=== PATIENT | male | born 1955 | race Caucasian/White ===

== ENCOUNTER 2019-04-21 15:29 | Inpatient (IN) ==
[2019-04-21] MEDS ORDERED: LABETALOL 20 MG/4 ML SYRINGE IV STA (16:49)
[2019-04-21] MEDS ORDERED: LABETALOL 20 MG/4 ML SYRINGE IV ONE (16:49)
[2019-04-21 16:51] LABS: Basophils # 0.1 10*3/uL (0.0-0.2); Basophils % 0.5 % (0.0-0.8); Eosinophils % 0.1 % (0.00-10.9); Hematocrit 52.5 VOL% (42.0-52.0); Hemoglobin 18.1 GM/DL (14.0-18.0); Immature Granulocytes % 0.4 %; Immature Granulocytes Absolute 0.05 #; Lymphocytes # 1.1 10*3/uL (1.4-4.0); Lymphocytes % 8.2 % (21.2-54.2); Mean Corpuscular HGB Conc 34.5 GM/DL (32-36); Mean Corpuscular Volume 95.5 FL (87-102); Mean Platelet Volume 9.5 FL (9.6-12.0); Monocytes % 6.5 % (1.7-12.7); Neutrophils % 84.3 % (38.7-73.9); Platelet Count 201 T/CUMM (130-400); Red Cell Distribution Width 11.9 % (9.3-17.3); White Blood Count 13.5 T/CUMM (4-12)
[2019-04-21 17:03] LABS: PT Patient Result 10.9 SECS (9.6-12.2); Partial Thromboplastin Time 28.3 SECS (20.8-36.0)
[2019-04-21 17:14] LABS: Alanine Aminotransferase 28 U/L (16-61); Albumin 3.4 G/DL (3.4-5.0); Alkaline Phosphatase 82 U/L (45-117); Aspartate Amino Transferase 22 U/L (0-37); Blood Urea Nitrogen 12 MG/DL (7-18); Calcium 9.4 MG/DL (8.5-10.1); Estimated Glom Filtration Rate 86 ML/MIN; Glucose 166 MG/DL (74-106); Total Protein 7.9 G/DL (6.4-8.3)
[2019-04-21] MEDS ORDERED: ACETAMINOPHEN 325 MG TABLET PO PRN (18:22)
[2019-04-21] MEDS ORDERED: ONDANSETRON 4 MG/2 ML VIAL IV PRN (18:22)
[2019-04-21] MEDS ORDERED: LABETALOL 20 MG/4 ML SYRINGE IV PRN (18:27)
[2019-04-21] MEDS ORDERED: ENOXAPARIN 40 MG/0.4 ML SYRINGE SUBCUT SCH (18:30)
[2019-04-21] MEDS ORDERED: hydrALAZINE 20 MG/1 ML VIAL ONE (18:49)
[2019-04-21] MEDS ORDERED: DEXTROSE 50% 25 GM/50 ML VIAL IV PRN (18:51)
[2019-04-21] MEDS ORDERED: GLUCAGON 1 MG VIAL IM PRN (18:51)
[2019-04-21] MEDS: LISINOPRIL 10 MG TABLET PO SCH (18:55)
[2019-04-21] MEDS ORDERED: ENOXAPARIN 30 MG/0.3 ML SYRINGE SUBCUT SCH (19:00)
[2019-04-21 19:35] LABS: Risk Ratio 5.3; VLDL CHOLESTEROL 36.6 MG/DL
[2019-04-21] MEDS ORDERED: ASPIRIN EC 81 MG TABLET PO SCH (21:00)
[2019-04-21] MEDS: INSULIN REGULAR 100 UNIT/ML SUBCUT SCH (21:24)
[2019-04-21] MEDS: WARFARIN 10 MG TABLET PO SCH (23:06)
[2019-04-21] MEDS: ROSUVASTATIN 20 MG TABLET PO SCH (23:06)
[2019-04-21] MEDS: DOXEPIN 25 MG CAPSULE PO SCH (23:07)
[2019-04-21] MEDS: metFORMIN 500 MG TABLET PO SCH (23:07)
[2019-04-21] MEDS: ENOXAPARIN 120 MG/0.8 ML SYRINGE SUBCUT SCH (23:08)
[2019-04-21] MEDS: SODIUM CHLORIDE 0.9% 1,000 ML IV SCH (23:08)
[2019-04-22 05:05] LABS: Basophils # 0.1 10*3/uL (0.0-0.2); Basophils % 0.7 % (0.0-0.8); Eosinophils # 0.1 10*3/uL (0.0-0.87); Eosinophils % 0.6 % (0.00-10.9); Hematocrit 44.4 VOL% (42.0-52.0); Hemoglobin 15.5 GM/DL (14.0-18.0); Immature Granulocytes % 0.1 %; Immature Granulocytes Absolute 0.01 #; Lymphocytes # 1.3 10*3/uL (1.4-4.0); Lymphocytes % 14.8 % (21.2-54.2); Mean Corpuscular HGB Conc 34.9 GM/DL (32-36); Mean Corpuscular Volume 95.9 FL (87-102); Mean Platelet Volume 9.7 FL (9.6-12.0); Monocytes % 7.2 % (1.7-12.7); Neutrophils % 76.6 % (38.7-73.9); Platelet Count 182 T/CUMM (130-400); Red Blood Count 4.63 MC/CUMM (3.8-5.5); Red Cell Distribution Width 12.2 % (9.3-17.3); White Blood Count 8.4 T/CUMM (4-12)
[2019-04-22 05:12] LABS: INR 1.1; PT Patient Result 11.9 SECS (9.6-12.2)
[2019-04-22 05:31] LABS: Calcium 8.7 MG/DL (8.5-10.1); Osmolality,Calculated 280.7 MOS/KG (273-304)
[2019-04-22] MEDS ORDERED: ASPIRIN EC 81 MG TABLET PO SCH (09:00)
[2019-04-22] MEDS: INSULIN REGULAR 100 UNIT/ML SUBCUT SCH ×4 (09:55→23:05)
[2019-04-22] MEDS: NICOTINE 14 MG/24 HR PATCH TRANSDERM SCH (11:00)
[2019-04-22] MEDS: LISINOPRIL 10 MG TABLET PO SCH ×2 (11:00→21:33)
[2019-04-22] MEDS: metFORMIN 500 MG TABLET PO SCH ×2 (11:00→21:32)
[2019-04-22] MEDS: ENOXAPARIN 120 MG/0.8 ML SYRINGE SUBCUT SCH ×2 (11:09→21:34)
[2019-04-22] MEDS: SODIUM CHLORIDE 0.9% 1,000 ML IV SCH ×2 (11:32→17:32)
[2019-04-22] MEDS: WARFARIN 10 MG TABLET PO SCH (18:18)
[2019-04-22] MEDS: DOXEPIN 25 MG CAPSULE PO SCH (21:32)
[2019-04-22] MEDS: ROSUVASTATIN 20 MG TABLET PO SCH (23:05)
[2019-04-23 05:00] LABS: INR 1.6; PT Patient Result 17.1 SECS (9.6-12.2)
[2019-04-23] MEDS: ENOXAPARIN 120 MG/0.8 ML SYRINGE SUBCUT SCH (08:53)
[2019-04-23] MEDS: CLOPIDOGREL 75 MG TABLET PO SCH (08:53)
[2019-04-23] MEDS: LISINOPRIL 10 MG TABLET PO SCH ×2 (08:53→22:21)
[2019-04-23] MEDS: INSULIN REGULAR 100 UNIT/ML SUBCUT SCH ×3 (08:53→18:53)
[2019-04-23] MEDS: metFORMIN 500 MG TABLET PO SCH ×2 (08:53→22:21)
[2019-04-23] MEDS: NICOTINE 14 MG/24 HR PATCH TRANSDERM SCH (09:18)
[2019-04-23] MEDS: hydrALAZINE 20 MG/1 ML VIAL IV PRN (12:27)
[2019-04-23] MEDS: hydrALAZINE 25 MG TABLET PO SCH ×2 (16:08→22:21)
[2019-04-23] MEDS: DOXEPIN 25 MG CAPSULE PO SCH (22:21)
[2019-04-23] MEDS: ROSUVASTATIN 20 MG TABLET PO SCH (22:21)
[2019-04-23] MEDS: APIXABAN 5 MG TABLET PO SCH (22:21)
[2019-04-24] MEDS: INSULIN REGULAR 100 UNIT/ML SUBCUT SCH ×5 (02:58→22:12)
[2019-04-24 04:17] LABS: Apearance,Urine CLEAR (Clear); Bilirubin,Urine Negative (Negative); Blood, Urine Small mg/dL (Negative); Glucose,Urine (UA) 150 mg/dL (Negative); Hyaline Casts,Urine 5 /LPF (0-3); Ketones,Urine 5 mg/dL (Negative); Mucus,Urine Occasional /LPF (Occasional); Nitrite,Urine Negative (Negative); Protein,Urine >=500 MG/DL; RBC,Urine 1 /HPF (0-4); Urine Color Yellow (Yellow); Urine Specific Gravity 1.023 (1.001-1.035); WBC,Urine <1 /HPF (0-6)
[2019-04-24 06:59] LABS: Basophils # 0.1 10*3/uL (0.0-0.2); Basophils % 0.5 % (0.0-0.8); Eosinophils # 0.1 10*3/uL (0.0-0.87); Eosinophils % 0.8 % (0.00-10.9); Hematocrit 47.4 VOL% (42.0-52.0); Hemoglobin 16.3 GM/DL (14.0-18.0); Immature Granulocytes % 0.3 %; Immature Granulocytes Absolute 0.03 #; Lymphocytes % 10.1 % (21.2-54.2); Mean Corpuscular HGB Conc 34.4 GM/DL (32-36); Mean Corpuscular Volume 96.7 FL (87-102); Mean Platelet Volume 9.8 FL (9.6-12.0); Monocytes % 8.8 % (1.7-12.7); Neutrophils % 79.5 % (38.7-73.9); Platelet Count 166 T/CUMM (130-400); White Blood Count 9.6 T/CUMM (4-12)
[2019-04-24 07:22] LABS: Calcium 9.1 MG/DL (8.5-10.1); Osmolality,Calculated 291.1 MOS/KG (273-304)
[2019-04-24 07:24] LABS: Barbiturates Screen,Urine Negative (Negative); Benzodiazepines Screen,Urine Negative (Negative); Cannabinoid Screen,Urine Negative (Negative); Opiate Screen,Urine Negative (Negative); Phencyclidine Screen,Urine Negative (Negative)
[2019-04-24] MEDS: LISINOPRIL 10 MG TABLET PO SCH ×2 (09:54→22:05)
[2019-04-24] MEDS: metFORMIN 500 MG TABLET PO SCH ×2 (09:54→22:05)
[2019-04-24] MEDS: APIXABAN 5 MG TABLET PO SCH ×2 (09:54→22:05)
[2019-04-24] MEDS: NICOTINE 14 MG/24 HR PATCH TRANSDERM SCH (09:54)
[2019-04-24] MEDS: CLOPIDOGREL 75 MG TABLET PO SCH (09:54)
[2019-04-24] MEDS: hydrALAZINE 25 MG TABLET PO SCH ×4 (09:55→22:50)
[2019-04-24] MEDS: SODIUM CHLORIDE 0.45% 1,000 ML IV SCH (10:08)
[2019-04-24] MEDS: hydroCHLOROthiazide 12.5 MG CAPSULE PO SCH (15:38)
[2019-04-24] MEDS: ROSUVASTATIN 20 MG TABLET PO SCH (22:04)
[2019-04-24] MEDS: DOXEPIN 25 MG CAPSULE PO SCH (22:05)
[2019-04-25 06:30] LABS: Hematocrit 45.4 VOL% (42.0-52.0); Hemoglobin 15.7 GM/DL (14.0-18.0); Mean Corpuscular Volume 97.4 FL (87-102); Red Blood Count 4.66 MC/CUMM (3.8-5.5); White Blood Count 8.5 T/CUMM (4-12)
[2019-04-25 06:31] LABS: Basophils # 0.1 10*3/uL (0.0-0.2); Basophils % 0.7 % (0.0-0.8); Eosinophils # 0.1 10*3/uL (0.0-0.87); Eosinophils % 1.5 % (0.00-10.9); Immature Granulocytes % 0.4 %; Immature Granulocytes Absolute 0.03 #; Lymphocytes # 1.2 10*3/uL (1.4-4.0); Lymphocytes % 14.2 % (21.2-54.2); Mean Corpuscular HGB Conc 34.6 GM/DL (32-36); Mean Platelet Volume 9.9 FL (9.6-12.0); Monocytes % 10.1 % (1.7-12.7); Neutrophils % 73.1 % (38.7-73.9); Platelet Count 169 T/CUMM (130-400); Red Cell Distribution Width 12.1 % (9.3-17.3)
[2019-04-25 06:52] LABS: Calcium 8.9 MG/DL (8.5-10.1); Osmolality,Calculated 292.3 MOS/KG (273-304)
[2019-04-25] MEDS: SODIUM CHLORIDE 0.45% 1,000 ML IV SCH (09:04)
[2019-04-25] MEDS: INSULIN REGULAR 100 UNIT/ML SUBCUT SCH ×3 (09:05→18:12)
[2019-04-25] MEDS: CLOPIDOGREL 75 MG TABLET PO SCH (09:05)
[2019-04-25] MEDS: metFORMIN 500 MG TABLET PO SCH ×2 (09:05→23:50)
[2019-04-25] MEDS: APIXABAN 5 MG TABLET PO SCH ×2 (09:06→23:50)
[2019-04-25] MEDS: hydroCHLOROthiazide 12.5 MG CAPSULE PO SCH (09:06)
[2019-04-25] MEDS: amLODIPine 10 MG TABLET PO SCH (09:06)
[2019-04-25] MEDS: NICOTINE 14 MG/24 HR PATCH TRANSDERM SCH (09:06)
[2019-04-25] MEDS: hydrALAZINE 25 MG TABLET PO SCH ×4 (09:06→23:50)
[2019-04-25] MEDS: PANTOPRAZOLE 40 MG VIAL IV SCH (18:12)
[2019-04-25] MEDS: ROSUVASTATIN 20 MG TABLET PO SCH (23:49)
[2019-04-25] MEDS: DOXEPIN 25 MG CAPSULE PO SCH (23:49)
[2019-04-26] MEDS: INSULIN REGULAR 100 UNIT/ML SUBCUT SCH ×5 (00:04→22:47)
[2019-04-26 06:14] LABS: Calcium 8.7 MG/DL (8.5-10.1); Osmolality,Calculated 285.7 MOS/KG (273-304)
[2019-04-26] MEDS: SODIUM CHLORIDE 0.45% 1,000 ML IV SCH ×5 (07:30→22:00)
[2019-04-26] MEDS: hydroCHLOROthiazide 12.5 MG CAPSULE PO SCH (09:03)
[2019-04-26] MEDS: APIXABAN 5 MG TABLET PO SCH ×2 (09:03→21:43)
[2019-04-26] MEDS: metFORMIN 500 MG TABLET PO SCH ×2 (09:03→21:42)
[2019-04-26] MEDS: CLOPIDOGREL 75 MG TABLET PO SCH (09:04)
[2019-04-26] MEDS: hydrALAZINE 25 MG TABLET PO SCH ×4 (09:04→21:43)
[2019-04-26] MEDS: amLODIPine 10 MG TABLET PO SCH (09:05)
[2019-04-26] MEDS: PANTOPRAZOLE 40 MG VIAL IV SCH (09:05)
[2019-04-26] MEDS: NICOTINE 14 MG/24 HR PATCH TRANSDERM SCH (09:05)
[2019-04-26] MEDS: hydrALAZINE 20 MG/1 ML VIAL IV PRN (19:27)
[2019-04-26] MEDS: ROSUVASTATIN 20 MG TABLET PO SCH (21:42)
[2019-04-26] MEDS: DOXEPIN 25 MG CAPSULE PO SCH (21:43)
[2019-04-27] MEDS: SODIUM CHLORIDE 0.45% 1,000 ML IV SCH ×2 (03:30→12:55)
[2019-04-27 05:41] LABS: Basophils # 0.1 10*3/uL (0.0-0.2); Basophils % 0.6 % (0.0-0.8); Eosinophils # 0.1 10*3/uL (0.0-0.87); Hematocrit 46.4 VOL% (42.0-52.0); Hemoglobin 16.1 GM/DL (14.0-18.0); Immature Granulocytes % 0.2 %; Immature Granulocytes Absolute 0.02 #; Lymphocytes # 1.1 10*3/uL (1.4-4.0); Lymphocytes % 12.2 % (21.2-54.2); Mean Corpuscular HGB Conc 34.7 GM/DL (32-36); Mean Corpuscular Volume 95.5 FL (87-102); Monocytes % 10.4 % (1.7-12.7); Neutrophils % 75.6 % (38.7-73.9); Platelet Count 187 T/CUMM (130-400); Red Blood Count 4.86 MC/CUMM (3.8-5.5); Red Cell Distribution Width 11.5 % (9.3-17.3); White Blood Count 8.6 T/CUMM (4-12)
[2019-04-27 06:00] LABS: Calcium 9.1 MG/DL (8.5-10.1)
[2019-04-27] MEDS: hydroCHLOROthiazide 12.5 MG CAPSULE PO SCH (08:45)
[2019-04-27] MEDS: PANTOPRAZOLE 40 MG VIAL IV SCH (08:46)
[2019-04-27] MEDS: hydrALAZINE 25 MG TABLET PO SCH ×4 (08:46→21:18)
[2019-04-27] MEDS: CLOPIDOGREL 75 MG TABLET PO SCH (08:46)
[2019-04-27] MEDS: metFORMIN 500 MG TABLET PO SCH (08:46)
[2019-04-27] MEDS: amLODIPine 10 MG TABLET PO SCH (08:46)
[2019-04-27] MEDS: APIXABAN 5 MG TABLET PO SCH (08:46)
[2019-04-27] MEDS: INSULIN REGULAR 100 UNIT/ML SUBCUT SCH ×4 (10:20→21:31)
[2019-04-27] MEDS: NICOTINE 14 MG/24 HR PATCH TRANSDERM SCH (10:21)
[2019-04-27] MEDS: HEPARIN DRIP 25,000 UNITS/500 ML PREMIX IV SCH (21:18)
[2019-04-27] MEDS: DOXEPIN 25 MG CAPSULE PO SCH (21:18)
[2019-04-27] MEDS: ROSUVASTATIN 20 MG TABLET PO SCH (21:18)
[2019-04-28 05:45] LABS: Basophils # 0.1 10*3/uL (0.0-0.2); Basophils % 0.6 % (0.0-0.8); Eosinophils # 0.2 10*3/uL (0.0-0.87); Eosinophils % 1.8 % (0.00-10.9); Hematocrit 45.4 VOL% (42.0-52.0); Hemoglobin 16.2 GM/DL (14.0-18.0); Immature Granulocytes % 0.4 %; Immature Granulocytes Absolute 0.04 #; Lymphocytes # 1.3 10*3/uL (1.4-4.0); Lymphocytes % 14.1 % (21.2-54.2); Mean Corpuscular HGB Conc 35.7 GM/DL (32-36); Mean Corpuscular Volume 93.6 FL (87-102); Mean Platelet Volume 9.9 FL (9.6-12.0); Monocytes % 10.6 % (1.7-12.7); Neutrophils % 72.5 % (38.7-73.9); Platelet Count 207 T/CUMM (130-400); Red Blood Count 4.85 MC/CUMM (3.8-5.5); Red Cell Distribution Width 11.4 % (9.3-17.3); White Blood Count 8.9 T/CUMM (4-12)
[2019-04-28 06:10] LABS: Calcium 9.1 MG/DL (8.5-10.1); Osmolality,Calculated 281.8 MOS/KG (273-304)
[2019-04-28] MEDS: SODIUM CHLORIDE 0.45% 1,000 ML IV SCH ×2 (07:36→07:47)
[2019-04-28] MEDS: PANTOPRAZOLE 40 MG VIAL IV SCH (09:07)
[2019-04-28] MEDS: INSULIN REGULAR 100 UNIT/ML SUBCUT SCH ×4 (09:07→22:40)
[2019-04-28] MEDS: hydroCHLOROthiazide 12.5 MG CAPSULE PO SCH (09:08)
[2019-04-28] MEDS: amLODIPine 10 MG TABLET PO SCH (09:08)
[2019-04-28] MEDS: NICOTINE 14 MG/24 HR PATCH TRANSDERM SCH (09:08)
[2019-04-28] MEDS: hydrALAZINE 25 MG TABLET PO SCH ×4 (09:08→21:42)
[2019-04-28] MEDS: carvediloL 6.25 MG TABLET PO SCH ×2 (11:38→21:43)
[2019-04-28] MEDS: HEPARIN DRIP 25,000 UNITS/500 ML PREMIX IV SCH (13:47)
[2019-04-28] MEDS: ROSUVASTATIN 20 MG TABLET PO SCH (21:43)
[2019-04-28] MEDS: DOXEPIN 25 MG CAPSULE PO SCH (21:43)
[2019-04-29 02:22] LABS: Basophils # 0.1 10*3/uL (0.0-0.2); Basophils % 1.3 % (0.0-0.8); Eosinophils # 0.2 10*3/uL (0.0-0.87); Eosinophils % 2.3 % (0.00-10.9); Hematocrit 43.6 VOL% (42.0-52.0); Hemoglobin 15.7 GM/DL (14.0-18.0); Immature Granulocytes % 0.4 %; Immature Granulocytes Absolute 0.03 #; Lymphocytes # 1.5 10*3/uL (1.4-4.0); Lymphocytes % 18.1 % (21.2-54.2); Mean Corpuscular Volume 92.2 FL (87-102); Mean Platelet Volume 10.3 FL (9.6-12.0); Monocytes % 11.5 % (1.7-12.7); Neutrophils % 66.4 % (38.7-73.9); Platelet Count 229 T/CUMM (130-400); Red Blood Count 4.73 MC/CUMM (3.8-5.5); Red Cell Distribution Width 11.2 % (9.3-17.3)
[2019-04-29 02:40] LABS: Calcium 8.9 MG/DL (8.5-10.1); Osmolality,Calculated 283.7 MOS/KG (273-304)
[2019-04-29] MEDS ORDERED: POTASSIUM CHLORIDE 20 MEQ/15 ML UDCUP PER TUBE PRN (08:14)
[2019-04-29] MEDS: INSULIN REGULAR 100 UNIT/ML SUBCUT SCH ×5 (08:23→21:11)
[2019-04-29] MEDS: HEPARIN DRIP 25,000 UNITS/500 ML PREMIX IV SCH (09:58)
[2019-04-29] MEDS: PANTOPRAZOLE 40 MG VIAL IV SCH (10:00)
[2019-04-29] MEDS: POTASSIUM CHLORIDE RIDER 10 MEQ in PREMIX 1 EACH IV PRN ×5 (10:02→17:11)
[2019-04-29] MEDS: amLODIPine 10 MG TABLET PO SCH (10:04)
[2019-04-29] MEDS: hydrALAZINE 25 MG TABLET PO SCH ×4 (10:04→21:10)
[2019-04-29] MEDS: hydroCHLOROthiazide 12.5 MG CAPSULE PO SCH (10:04)
[2019-04-29] MEDS: carvediloL 6.25 MG TABLET PO SCH ×2 (10:05→21:10)
[2019-04-29] MEDS: NICOTINE 14 MG/24 HR PATCH TRANSDERM SCH (10:12)
[2019-04-29] MEDS: SODIUM CHLORIDE 0.45% 1,000 ML IV SCH ×3 (11:33→11:39)
[2019-04-29] MEDS: ROSUVASTATIN 20 MG TABLET PO SCH (21:10)
[2019-04-29] MEDS: DOXEPIN 25 MG CAPSULE PO SCH (21:11)
[2019-04-30] MEDS: HEPARIN DRIP 25,000 UNITS/500 ML PREMIX IV SCH (04:38)
[2019-04-30 06:25] LABS: Basophils # 0.1 10*3/uL (0.0-0.2); Basophils % 1.1 % (0.0-0.8); Eosinophils # 0.1 10*3/uL (0.0-0.87); Eosinophils % 1.5 % (0.00-10.9); Hematocrit 42.2 VOL% (42.0-52.0); Hemoglobin 15.1 GM/DL (14.0-18.0); Immature Granulocytes % 0.5 %; Immature Granulocytes Absolute 0.04 #; Lymphocytes # 1.2 10*3/uL (1.4-4.0); Lymphocytes % 15.3 % (21.2-54.2); Mean Corpuscular HGB Conc 35.8 GM/DL (32-36); Mean Platelet Volume 10.3 FL (9.6-12.0); Monocytes % 9.4 % (1.7-12.7); Neutrophils % 72.2 % (38.7-73.9); Platelet Count 235 T/CUMM (130-400); Red Blood Count 4.54 MC/CUMM (3.8-5.5); Red Cell Distribution Width 11.4 % (9.3-17.3); White Blood Count 7.8 T/CUMM (4-12)
[2019-04-30 06:42] LABS: Calcium 8.8 MG/DL (8.5-10.1); Osmolality,Calculated 274.2 MOS/KG (273-304)
[2019-04-30] MEDS ORDERED: MAGNESIUM SULF RIDER 2 GM in PREMIX 1 EACH IV PRN (07:34)
[2019-04-30] MEDS ORDERED: MAGNESIUM SULF RIDER 4 GM in PREMIX 1 EACH IV PRN (07:34)
[2019-04-30] MEDS: hydroCHLOROthiazide 12.5 MG CAPSULE PO SCH (08:56)
[2019-04-30] MEDS: hydrALAZINE 25 MG TABLET PO SCH ×4 (08:56→20:50)
[2019-04-30] MEDS: carvediloL 6.25 MG TABLET PO SCH ×2 (08:57→20:50)
[2019-04-30] MEDS: amLODIPine 10 MG TABLET PO SCH (08:57)
[2019-04-30] MEDS: INSULIN REGULAR 100 UNIT/ML SUBCUT SCH ×4 (08:57→20:50)
[2019-04-30] MEDS: PANTOPRAZOLE 40 MG VIAL IV SCH (08:58)
[2019-04-30] MEDS: NICOTINE 14 MG/24 HR PATCH TRANSDERM SCH (08:58)
[2019-04-30] MEDS: SODIUM CHLORIDE 0.45% 1,000 ML IV SCH ×3 (09:46→15:42)
[2019-04-30] MEDS: POTASSIUM CHLORIDE RIDER 10 MEQ in PREMIX 1 EACH IV PRN ×5 (10:55→17:49)
[2019-04-30] MEDS: DOXEPIN 25 MG CAPSULE PO SCH (20:50)
[2019-04-30] MEDS: ROSUVASTATIN 20 MG TABLET PO SCH (20:50)
[2019-05-01 05:52] LABS: Basophils # 0.1 10*3/uL (0.0-0.2); Basophils % 1.1 % (0.0-0.8); Eosinophils # 0.1 10*3/uL (0.0-0.87); Eosinophils % 1.8 % (0.00-10.9); Hematocrit 44.3 VOL% (42.0-52.0); Hemoglobin 15.8 GM/DL (14.0-18.0); Immature Granulocytes % 0.5 %; Immature Granulocytes Absolute 0.03 #; Lymphocytes # 1.4 10*3/uL (1.4-4.0); Lymphocytes % 21.1 % (21.2-54.2); Mean Corpuscular HGB Conc 35.7 GM/DL (32-36); Mean Corpuscular Volume 93.7 FL (87-102); Mean Platelet Volume 9.6 FL (9.6-12.0); Monocytes % 10.4 % (1.7-12.7); Neutrophils % 65.1 % (38.7-73.9); Platelet Count 237 T/CUMM (130-400); Red Blood Count 4.73 MC/CUMM (3.8-5.5); Red Cell Distribution Width 11.4 % (9.3-17.3); White Blood Count 6.5 T/CUMM (4-12)
[2019-05-01 06:01] LABS: INR 1.3; PT Patient Result 13.6 SECS (9.6-12.2)
[2019-05-01 06:29] LABS: Calcium 8.9 MG/DL (8.5-10.1)
[2019-05-01] MEDS: SODIUM CHLORIDE 0.45% 1,000 ML IV SCH ×2 (07:25→12:58)
[2019-05-01] MEDS: hydroCHLOROthiazide 12.5 MG CAPSULE PO SCH (08:00)
[2019-05-01] MEDS: hydrALAZINE 25 MG TABLET PO SCH ×3 (08:00→17:12)
[2019-05-01] MEDS ORDERED: LACTATED RINGERS 1,000 ML IV SCH (08:00)
[2019-05-01] MEDS ORDERED: ceFAZolin 1,000 MG in SYRINGE 1 EACH IV ONE (08:00)
[2019-05-01] MEDS: carvediloL 6.25 MG TABLET PO SCH ×2 (08:00→20:21)
[2019-05-01] MEDS: amLODIPine 10 MG TABLET PO SCH (08:00)
[2019-05-01] MEDS: INSULIN REGULAR 100 UNIT/ML SUBCUT SCH ×4 (09:30→22:10)
[2019-05-01] MEDS ORDERED: LIDOCAINE 2% 5 ML VIAL ONE (10:00)
[2019-05-01] MEDS ORDERED: PROPOFOL 200 MG/20 ML VIAL IV ONE (10:00)
[2019-05-01 10:05] LABS: Hematocrit 41.8 VOL% (42.0-52.0); Hemoglobin 14.8 GM/DL (14.0-18.0)
[2019-05-01] MEDS: PANTOPRAZOLE 40 MG VIAL IV SCH (10:26)
[2019-05-01] MEDS: NICOTINE 14 MG/24 HR PATCH TRANSDERM SCH ×2 (10:26→14:17)
[2019-05-01 16:22] LABS: Hematocrit 44.4 VOL% (42.0-52.0); Hemoglobin 15.9 GM/DL (14.0-18.0)
[2019-05-01] MEDS: hydrALAZINE 20 MG/1 ML VIAL IV PRN (17:12)
[2019-05-01] MEDS: HEPARIN DRIP 25,000 UNITS/500 ML PREMIX IV SCH ×2 (17:13→17:46)
[2019-05-01] MEDS: DOXEPIN 25 MG CAPSULE PO SCH (20:21)
[2019-05-01] MEDS: APIXABAN 5 MG TABLET PO SCH (20:21)
[2019-05-01] MEDS: ROSUVASTATIN 20 MG TABLET PO SCH (20:21)
[2019-05-01 21:36] LABS: Hematocrit 41.6 VOL% (42.0-52.0); Hemoglobin 14.6 GM/DL (14.0-18.0)
[2019-05-02] MEDS: hydroCHLOROthiazide 12.5 MG CAPSULE PO SCH (08:54)
[2019-05-02] MEDS: amLODIPine 10 MG TABLET PO SCH (08:54)
[2019-05-02] MEDS: carvediloL 6.25 MG TABLET PO SCH (08:55)
[2019-05-02] MEDS: PANTOPRAZOLE 40 MG VIAL IV SCH (08:55)
[2019-05-02] MEDS: APIXABAN 5 MG TABLET PO SCH ×2 (08:55→20:19)
[2019-05-02] MEDS: INSULIN REGULAR 100 UNIT/ML SUBCUT SCH ×3 (08:55→15:32)
[2019-05-02] MEDS: CLOPIDOGREL 75 MG TABLET PO SCH (08:55)
[2019-05-02] MEDS: NICOTINE 14 MG/24 HR PATCH TRANSDERM SCH (10:22)
[2019-05-02] MEDS: VENLAFAXINE XR 37.5 MG CAPSULE PO SCH (12:42)
[2019-05-02] MEDS: carvediloL 12.5 MG TABLET PO SCH (20:19)
[2019-05-02] MEDS: DOXEPIN 25 MG CAPSULE PO SCH (20:19)
[2019-05-02] MEDS: ROSUVASTATIN 20 MG TABLET PO SCH (20:19)
[2019-05-03] MEDS: INSULIN REGULAR 100 UNIT/ML SUBCUT SCH ×4 (02:05→17:12)
[2019-05-03 05:09] LABS: Basophils # 0.1 10*3/uL (0.0-0.2); Basophils % 0.6 % (0.0-0.8); Eosinophils # 0.2 10*3/uL (0.0-0.87); Eosinophils % 1.8 % (0.00-10.9); Hematocrit 41.5 VOL% (42.0-52.0); Hemoglobin 14.6 GM/DL (14.0-18.0); Immature Granulocytes % 0.5 %; Immature Granulocytes Absolute 0.05 #; Lymphocytes # 1.4 10*3/uL (1.4-4.0); Lymphocytes % 14.2 % (21.2-54.2); Mean Corpuscular HGB Conc 35.2 GM/DL (32-36); Mean Platelet Volume 9.7 FL (9.6-12.0); Monocytes % 8.8 % (1.7-12.7); Neutrophils % 74.1 % (38.7-73.9); Platelet Count 233 T/CUMM (130-400); Red Blood Count 4.37 MC/CUMM (3.8-5.5); Red Cell Distribution Width 11.4 % (9.3-17.3); White Blood Count 9.7 T/CUMM (4-12)
[2019-05-03] MEDS: VENLAFAXINE XR 37.5 MG CAPSULE PO SCH (08:04)
[2019-05-03] MEDS: APIXABAN 5 MG TABLET PO SCH ×2 (08:04→21:41)
[2019-05-03] MEDS: CLOPIDOGREL 75 MG TABLET PO SCH (08:04)
[2019-05-03] MEDS: hydroCHLOROthiazide 12.5 MG CAPSULE PO SCH (08:04)
[2019-05-03] MEDS: amLODIPine 10 MG TABLET PO SCH (08:04)
[2019-05-03] MEDS: carvediloL 12.5 MG TABLET PO SCH ×2 (08:05→21:41)
[2019-05-03] MEDS: PANTOPRAZOLE 40 MG VIAL IV SCH (08:05)
[2019-05-03] MEDS: NICOTINE 14 MG/24 HR PATCH TRANSDERM SCH (09:00)
[2019-05-03] MEDS: DOXAZOSIN 1 MG TABLET PO SCH ×2 (09:01→21:41)
[2019-05-03] MEDS: DOXEPIN 25 MG CAPSULE PO SCH (21:41)
[2019-05-03] MEDS: ROSUVASTATIN 20 MG TABLET PO SCH (21:41)
[2019-05-04] MEDS: INSULIN REGULAR 100 UNIT/ML SUBCUT SCH ×5 (02:11→20:58)
[2019-05-04 05:17] LABS: Basophils # 0.1 10*3/uL (0.0-0.2); Basophils % 0.6 % (0.0-0.8); Eosinophils # 0.2 10*3/uL (0.0-0.87); Eosinophils % 1.4 % (0.00-10.9); Hematocrit 42.7 VOL% (42.0-52.0); Hemoglobin 14.8 GM/DL (14.0-18.0); Immature Granulocytes % 0.4 %; Immature Granulocytes Absolute 0.05 #; Lymphocytes # 1.5 10*3/uL (1.4-4.0); Mean Corpuscular HGB Conc 34.7 GM/DL (32-36); Mean Corpuscular Volume 94.7 FL (87-102); Mean Platelet Volume 9.4 FL (9.6-12.0); Monocytes % 7.8 % (1.7-12.7); Neutrophils % 76.8 % (38.7-73.9); Platelet Count 237 T/CUMM (130-400); Red Blood Count 4.51 MC/CUMM (3.8-5.5); Red Cell Distribution Width 11.3 % (9.3-17.3); White Blood Count 11.2 T/CUMM (4-12)
[2019-05-04 06:05] LABS: Calcium 8.9 MG/DL (8.5-10.1); Osmolality,Calculated 275.2 MOS/KG (273-304); Prealbumin 14.4 MG/DL (20-40)
[2019-05-04] MEDS ORDERED: POTASSIUM CHLORIDE 20 MEQ TABLET PO ONE (07:25)
[2019-05-04] MEDS: PANTOPRAZOLE 40 MG VIAL IV SCH (09:38)
[2019-05-04] MEDS: APIXABAN 5 MG TABLET PO SCH ×2 (09:40→20:44)
[2019-05-04] MEDS: NICOTINE 14 MG/24 HR PATCH TRANSDERM SCH (09:40)
[2019-05-04] MEDS: VENLAFAXINE XR 37.5 MG CAPSULE PO SCH (09:40)
[2019-05-04] MEDS: amLODIPine 10 MG TABLET PO SCH (09:40)
[2019-05-04] MEDS: CLOPIDOGREL 75 MG TABLET PO SCH (09:40)
[2019-05-04] MEDS: hydroCHLOROthiazide 12.5 MG CAPSULE PO SCH (09:40)
[2019-05-04] MEDS: carvediloL 12.5 MG TABLET PO SCH ×2 (09:40→20:44)
[2019-05-04] MEDS: POTASSIUM BICARB EFFERVESCENT 25 MEQ TABLET PO SCH (15:02)
[2019-05-04] MEDS: ROSUVASTATIN 20 MG TABLET PO SCH (20:44)
[2019-05-04] MEDS: DOXEPIN 25 MG CAPSULE PO SCH (20:44)
[2019-05-04] MEDS: DOXAZOSIN 1 MG TABLET PO SCH (20:45)
[2019-05-05 06:06] LABS: Basophils # 0.1 10*3/uL (0.0-0.2); Basophils % 0.8 % (0.0-0.8); Eosinophils # 0.2 10*3/uL (0.0-0.87); Eosinophils % 1.7 % (0.00-10.9); Hematocrit 41.7 VOL% (42.0-52.0); Hemoglobin 14.5 GM/DL (14.0-18.0); Immature Granulocytes % 0.4 %; Immature Granulocytes Absolute 0.04 #; Lymphocytes # 1.6 10*3/uL (1.4-4.0); Lymphocytes % 15.7 % (21.2-54.2); Mean Corpuscular HGB Conc 34.8 GM/DL (32-36); Mean Corpuscular Volume 95.9 FL (87-102); Mean Platelet Volume 9.5 FL (9.6-12.0); Monocytes % 8.3 % (1.7-12.7); Neutrophils % 73.1 % (38.7-73.9); Platelet Count 242 T/CUMM (130-400); Red Blood Count 4.35 MC/CUMM (3.8-5.5); Red Cell Distribution Width 11.2 % (9.3-17.3); White Blood Count 10.2 T/CUMM (4-12)
[2019-05-05] MEDS ORDERED: ESCITALOPRAM 10 MG TABLET PO SCH (09:00)
[2019-05-05] MEDS: amLODIPine 10 MG TABLET PO SCH (09:18)
[2019-05-05] MEDS: carvediloL 12.5 MG TABLET PO SCH (09:18)
[2019-05-05] MEDS: hydroCHLOROthiazide 12.5 MG CAPSULE PO SCH (09:18)
[2019-05-05] MEDS: POTASSIUM BICARB EFFERVESCENT 25 MEQ TABLET PO SCH (09:18)
[2019-05-05] MEDS: INSULIN REGULAR 100 UNIT/ML SUBCUT SCH ×2 (09:19→13:24)
[2019-05-05] MEDS: APIXABAN 5 MG TABLET PO SCH (09:19)
[2019-05-05] MEDS: PANTOPRAZOLE 40 MG VIAL IV SCH (09:20)
[2019-05-05] MEDS: CLOPIDOGREL 75 MG TABLET PO SCH (09:24)
[2019-05-05] MEDS: NICOTINE 14 MG/24 HR PATCH TRANSDERM SCH (09:24)
[2019-05-05 12:19] VITALS: BP 145/69
== END 2019-05-05 15:12 | DRG 65 ==
LOC: EDBD → EDUNIT# → N.ED 15:29 → N.EDINP 15:29 → SUPCPDRO 18:22 → N.4E 19:58 → SUATTDRO 04-22 15:40
PROVIDERS: ADMIT Emergency Medicine; ATTEND Hospitalist
PROC: EGDWPEG (ICD-10-PCS; 2019-05-01 09:05)

== ENCOUNTER 2019-12-07 00:20 | Inpatient (IN) ==
[2019-12-07 01:04] LABS: Basophils % 0.3 % (0.0-0.8); Eosinophils % 0.1 % (0.00-10.9); Hematocrit 34.4 VOL% (42.0-52.0); Hemoglobin 11.4 GM/DL (14.0-18.0); Immature Granulocytes % 1.2 %; Immature Granulocytes Absolute 0.11 #; Lymphocytes # 1.1 10*3/uL (1.4-4.0); Lymphocytes % 12.1 % (21.2-54.2); Mean Corpuscular HGB Conc 33.1 GM/DL (32-36); Mean Corpuscular Volume 95.8 FL (87-102); Mean Platelet Volume 9.5 FL (9.6-12.0); Monocytes % 9.1 % (1.7-12.7); Neutrophils % 77.2 % (38.7-73.9); Platelet Count 186 T/CUMM (130-400); Red Blood Count 3.59 MC/CUMM (3.8-5.5); White Blood Count 9.1 T/CUMM (4-12)
[2019-12-07 01:07] LABS: Apearance,Urine CLEAR (Clear); Bilirubin,Urine Negative (Negative); Blood, Urine Small mg/dL (Negative); Glucose,Urine (UA) >=500 mg/dL (Negative); Hyaline Casts,Urine 1 /LPF (0-3); Ketones,Urine Negative (Negative); Mucus,Urine Occasional /LPF (Occasional); Nitrite,Urine Negative (Negative); Protein,Urine 100 MG/DL; RBC,Urine 4 /HPF (0-4); Squamous Epithelial Cell,Urine Occasional /HPF (0-10); Urine Color Yellow (Yellow); Urine Specific Gravity 1.011 (1.001-1.035); WBC,Urine <1 /HPF (0-6)
[2019-12-07 01:08] LABS: Alanine Aminotransferase 60 U/L (16-61); Albumin 1.8 G/DL (3.4-5.0); Alkaline Phosphatase 147 U/L (45-117); Aspartate Amino Transferase 84 U/L (0-37); Bilirubin,Total < 0.39 MG/DL (0.2-1.0); Blood Urea Nitrogen 18 MG/DL (7-18); Calcium 8.3 MG/DL (8.5-10.1); Estimated Glom Filtration Rate 103 ML/MIN; Osmolality,Calculated 268.1 MOS/KG (273-304); Total Protein 7.2 G/DL (6.4-8.3)
[2019-12-07 01:10] LABS: Glucose 43 MG/DL (74-106)
[2019-12-07] MEDS ORDERED: DEXTROSE 50% 25 GM/50 ML SYRINGE IV ONE (01:11)
[2019-12-07] MEDS ORDERED: DEXTROSE 50% 25 GM/50 ML VIAL IV STA (01:12)
[2019-12-07 01:13] LABS: Ferritin 795.9 ng/ml (26-388)
[2019-12-07] MEDS ORDERED: POTASSIUM CHLORIDE 20 MEQ TABLET PO STA (01:13)
[2019-12-07] MEDS ORDERED: GLUCAGON 1 MG VIAL IM PRN ×2 (03:31)
[2019-12-07] MEDS ORDERED: DEXTROSE 50% 25 GM/50 ML VIAL IV PRN (03:31)
[2019-12-07] MEDS ORDERED: ONDANSETRON 4 MG/2 ML VIAL IV PRN (03:31)
[2019-12-07] MEDS ORDERED: DEXTROSE 10% 250 ML BAG IV PRN (03:31)
[2019-12-07] MEDS ORDERED: AZITHROMYCIN INJ 500 MG in SODIUM CHLORIDE 0.9% 250 ML IV SCH (04:00)
[2019-12-07] MEDS ORDERED: ENOXAPARIN 40 MG/0.4 ML SYRINGE SUBCUT SCH (04:00)
[2019-12-07] MEDS: DEXTROSE 5% NACL 0.45% 1,000 ML IV SCH ×2 (04:45→21:11)
[2019-12-07] MEDS: cefTRIAXone 1,000 MG in SYRINGE 1 EACH IV SCH (04:45)
[2019-12-07 07:16] LABS: Basophils % 0.4 % (0.0-0.8); Eosinophils % 0.1 % (0.00-10.9); Hematocrit 34.9 VOL% (42.0-52.0); Hemoglobin 11.5 GM/DL (14.0-18.0); Immature Granulocytes % 0.5 %; Immature Granulocytes Absolute 0.04 #; Lymphocytes # 1.2 10*3/uL (1.4-4.0); Lymphocytes % 14.3 % (21.2-54.2); Mean Corpuscular Volume 96.4 FL (87-102); Mean Platelet Volume 9.4 FL (9.6-12.0); Neutrophils % 75.7 % (38.7-73.9); Platelet Count 169 T/CUMM (130-400); Red Blood Count 3.62 MC/CUMM (3.8-5.5); White Blood Count 8.4 T/CUMM (4-12)
[2019-12-07 07:29] LABS: Albumin 1.8 G/DL (3.4-5.0); Bilirubin,Total 1.6 MG/DL (0.2-1.0); Calcium 8.4 MG/DL (8.5-10.1); Ferritin 778.4 ng/ml (26-388); Osmolality,Calculated 264.4 MOS/KG (273-304); Total Protein 7.2 G/DL (6.4-8.3)
[2019-12-07] MEDS: ACETAMINOPHEN 325 MG TABLET PO PRN ×3 (07:44→21:53)
[2019-12-07] MEDS: AZITHROMYCIN 250 MG TABLET PO SCH (08:46)
[2019-12-07] MEDS: ZINC SULFATE 220 MG CAPSULE PO SCH (08:46)
[2019-12-07] MEDS ORDERED: PANTOPRAZOLE 40 MG TABLET PO SCH (09:00)
[2019-12-07] MEDS: POTASSIUM CHLORIDE RIDER 10 MEQ in PREMIX 1 EACH IV SCH ×2 (13:26→15:25)
[2019-12-08] MEDS: AZITHROMYCIN 250 MG TABLET PO SCH (09:32)
[2019-12-08] MEDS: cefTRIAXone 1,000 MG in SYRINGE 1 EACH IV SCH (09:32)
[2019-12-08] MEDS: DEXTROSE 5% NACL 0.45% 1,000 ML IV SCH (10:56)
[2019-12-08 12:01] LABS: Calcium 8.4 MG/DL (8.5-10.1); Osmolality,Calculated 272.1 MOS/KG (273-304)
[2019-12-08] MEDS: POTASSIUM CHLORIDE 20 MEQ TABLET PO PRN (17:30)
[2019-12-08] MEDS: ACETAMINOPHEN 325 MG TABLET PO PRN (17:30)
[2019-12-09] MEDS: POTASSIUM CHLORIDE 20 MEQ TABLET PO PRN ×3 (06:35→08:42)
[2019-12-09] MEDS: ZINC SULFATE 220 MG CAPSULE PO SCH (08:35)
[2019-12-09] MEDS: AZITHROMYCIN 250 MG TABLET PO SCH (08:35)
[2019-12-09] MEDS: cefTRIAXone 1,000 MG in SYRINGE 1 EACH IV SCH (09:46)
[2019-12-09] MEDS: DESITIN 4OZ/NYSTATIN 15 GRAM MIXTURE PASTE TOP SCH (22:04)
[2019-12-10 04:04] LABS: Basophils % 0.5 % (0.0-0.8); Eosinophils % 0.1 % (0.00-10.9); Hematocrit 35.2 VOL% (42.0-52.0); Hemoglobin 11.5 GM/DL (14.0-18.0); Immature Granulocytes % 0.4 %; Immature Granulocytes Absolute 0.03 #; Lymphocytes # 0.9 10*3/uL (1.4-4.0); Lymphocytes % 12.4 % (21.2-54.2); Mean Corpuscular HGB Conc 32.7 GM/DL (32-36); Mean Corpuscular Volume 94.6 FL (87-102); Mean Platelet Volume 8.8 FL (9.6-12.0); Monocytes % 7.1 % (1.7-12.7); Neutrophils % 79.5 % (38.7-73.9); Platelet Count 181 T/CUMM (130-400); Red Blood Count 3.72 MC/CUMM (3.8-5.5); White Blood Count 7.3 T/CUMM (4-12)
[2019-12-10 04:32] LABS: Calcium 8.7 MG/DL (8.5-10.1); Osmolality,Calculated 275.8 MOS/KG (273-304)
[2019-12-10] MEDS: AZITHROMYCIN 250 MG TABLET PO SCH (08:55)
[2019-12-10] MEDS: cefTRIAXone 1,000 MG in SYRINGE 1 EACH IV SCH (08:55)
[2019-12-10] MEDS ORDERED: POTASSIUM CHLORIDE 20 MEQ TABLET PO ONE (09:00)
[2019-12-10] MEDS: DESITIN 4OZ/NYSTATIN 15 GRAM MIXTURE PASTE TOP SCH (09:30)
[2019-12-10 16:56] VITALS: BP 144/78
== END 2019-12-10 19:20 | disposition home or self-care (01) | DRG 194 ==
LOC: EDBD → EDUNIT# → N.ED 00:20 → N.EDINP 03:31 → INTOOBSV 03:31 → N.2E 04:20
PROVIDERS: ADMIT Family Medicine; ATTEND Family Medicine